=== PATIENT | female | born 1970 | race Two or more races ===

== ENCOUNTER 2020-05-03 19:23 | Emergency (ER) | payer OTHER ==
[~2020-05-03] VITALS: Ht 165.1 cm; Wt 86.2 kg
[2020-05-03] MEDS ORDERED: KETO10TA2 PO (22:44)
[2020-05-03] MEDS ORDERED: ORPHENADRINE C100 MG PO (22:44)
[2020-05-03] MEDS ORDERED: TYLENOL 120MG120 MG (22:46)
== END 2020-05-03 22:56 ==
LOC: ER 19:23
DX: M94.0 Chondrocostal junction syndrome [Tietze] (principal)